=== PATIENT | female | born 1990 | race Caucasian/White ===

== ENCOUNTER 2021-04-06 15:25 | Emergency (ER) | payer MEDICAID, OTHER ==
[~2021-04-06] VITALS: Ht 167.6 cm; Wt 63.5 kg
[2021-04-06] MEDS ORDERED: SODIUM CHLORIDE 0.9% 1,000 ML IV ONE ×2 (15:30→17:45)
[2021-04-06] MEDS ORDERED: IOHEXOL 350 MG/ML 100ML IJ ONE (16:01)
[2021-04-06 17:47] VITALS: BP 133/83
== END 2021-04-06 19:40 | disposition home or self-care (01) ==
LOC: EDBD 15:25 → ER 15:25
DX: S22.32XA Fracture of one rib, left side, initial encounter for closed fracture (principal); M79.10 Myalgia, unspecified site; F17.210 Nicotine dependence, cigarettes, uncomplicated; Z88.8 Allergy status to other drugs, medicaments and biological substances; V49.9XXA Car occupant (driver) (passenger) injured in unspecified traffic accident, initial encounter; Y93.89 Activity, other specified; Y92.89 Other specified places as the place of occurrence of the external cause; Y99.8 Other external cause status
CPT/HCPCS: 70450; 71260; 72125; 74177; 96360; 96361; 99285; J7030; Q9967